=== PATIENT | female | born 1995 | race African-American/Black ===

== ENCOUNTER 2016-11-18 11:16 | Emergency (ER) | payer SELFPAY ==
[~2016-11-18] VITALS: Ht 165.1 cm; Wt 79.0 kg
[2016-11-18 14:29] LABS: ADD MIUA? YES; BILIRUBIN NEGATIVE; BLOOD NEGATIVE; COLOR YELLOW ((YELLOW)); GLUCOSE (STRIP) NEGATIVE; KETONES NEGATIVE; LEUKOCYTES NEGATIVE; NITRITE NEGATIVE; PROTEIN (STRIP) NEGATIVE; SPECIFIC GRAVITY 1.015 (1.000-1.030); UROBILINOGEN 0.2 MG/DL (0.2-1.0)
[2016-11-18 14:33] LABS: BACTERIA RARE /HPF; EPITHELIAL CELLS 1+ /HPF; MUCUS NONE SEEN /LPF; RED BLOOD CELLS 0-5 /HPF (0-5); UCUL ADDED? NO; WHITE BLOOD CELLS 0-5 /HPF (0-5)
[2016-11-18] MEDS ORDERED: BENTYL20 MG PO (15:35)
[2016-11-18] MEDS ORDERED: ZYRTEC10 M2 PO (15:35)
[2016-11-18 16:05] VITALS: BP 130/78
== END 2016-11-18 16:06 | disposition home or self-care (01) ==
LOC: EME 11:16
PROVIDERS: Nurse Practitioner Family
DX: R10.31 Right lower quadrant pain (principal); R10.32 Left lower quadrant pain; J30.2 Other seasonal allergic rhinitis; J02.9 Acute pharyngitis, unspecified; Z11.3 Encounter for screening for infections with a predominantly sexual mode of transmission
CPT/HCPCS: 81003; 99281; 99284; J0696